=== PATIENT | female | born 1970 ===

== ENCOUNTER 2018-05-30 01:04 | Emergency (ER) | payer MEDICAID ==
[2018-05-30 01:04] VITALS: BMI 31.6
[2018-05-30 01:08] VITALS: BP 137/90; PULSE 85; RESP 18; TEMP 98.6; O2SAT 98
[2018-05-30] MEDS ORDERED: Oxycodone/Acetaminophen 5/325 mg Tab PO ONE (01:27)
[2018-05-30] MEDS ORDERED: Oxycodone/Acetaminophen 5/325 mg Tab ONE (01:29)
--- NOTE | 2018-05-30 01:30 | ED PDOC ---
Upper Extremity Pain/Injury Time Seen by Provider: 05/30/18 01:15 Chief Complaint (Nursing): Upper Extremity Problem/Injury Chief Complaint (Provider): fall, pain History Per: Patient, EMS History/Exam Limitations: no limitations Onset/Duration Of Symptoms: Mins Current Symptoms Are (Timing): Still Present Elbow (Pic): 1 - Tenderness, Swelling, Pain Worse W/Movement Additional Complaint(s): 48 y/o female brought in by EMS for evaluation of right arm pain. Patient states she slipped on wet floor in apartment building and fell on right arm. Denies numbness/weakness right upper extremity. Past Medical History Reviewed: Historical Data, Nursing Documentation, Vital Signs Vital Signs: Last Vital Signs Temp 98.6 F 05/30/18 01:06 Pulse 85 05/30/18 01:06 Resp 18 05/30/18 01:06 BP 137/90 05/30/18 01:06 Pulse Ox 98 05/30/18 01:06 - Medical History PMH: Anemia, Anxiety, Bipolar Disorder, Depression, Hypothyroidism, Pneumonia Denies: Diabetes, Hepatitis, HIV, HTN, Chronic Kidney Disease, Seizures, Sexually Transmitted Disease - Surgical History Surgical History: Cholecystectomy, Hernia Repair (x 3), (x 2) - Family History Family History: States: Unknown Family Hx - Home Medications Home Medications: Ambulatory Orders Medication Instructions Recorded Aripiprazole [Abilify Maintena] 300 mg IM TTS 12/23/17 Levothyroxine Sodium [Synthroid] 0.088 mg PO DAILY 12/23/17 Enoxaparin [Lovenox] 40 mg SC DAILY syr 12/26/17 Escitalopram [Lexapro] 5 mg PO HS 30 Days #30 tab 12/26/17 Levothyroxine [Synthroid] 88 mcg PO DAILY@0630 tab 12/26/17 lamoTRIgine [Lamictal] 100 mg PO DAILY 30 Days #60 tab 12/26/17 DiphenhydrAMINE [Benadryl] 1 - 2 cap PO Q6 PRN #16 cap 05/08/18 Methylprednisolone [Medrol Dose 4 mg PO DAILY #21 mg 06/27/18 Pack (21 tabs)] traMADol [Ultram] 50 mg PO Q8 #10 tab 05/16/18 Acetaminophen with Codeine 1 tab PO Q6 PRN #10 tab 05/30/18 [Tylenol with Codeine No. 3 300 mg-30 mg] Ibuprofen [Motrin Tab] 1 tab PO Q6 PRN #20 tab 05/30/18 - Allergies Allergies/Adverse Reactions: Allergies Allergy/AdvReac Type Severity Reaction Status Date / Time No Known Allergies Allergy Verified 05/20/17 11:39 Review of Systems ROS Statement: Except As Marked, All Systems Reviewed And Found Negative Musculoskeletal: Positive for: Arm Pain Physical Exam - Reviewed Nursing Documentation Reviewed: Yes Vital Signs Reviewed: Yes - Physical Exam Appears: Positive for: Well, Non-toxic, Uncomfortable Head Exam: Positive for: ATRAUMATIC, NORMAL INSPECTION, NORMOCEPHALIC Skin: Positive for: Normal Color Eye Exam: Positive for: Normal appearance Pulses-Radial (L): 2+ Pulses-Radial (R): 2+ Extremity: Positive for: Capillary Refill (<2 sec), Swelling (right arm in flexion; swelling noted distal right humerus to elbow; limited ROM secondary to pain. DIstal NV/motor intact) Neurologic/Psych: Positive for: Alert, Oriented. Negative for: Motor/Sensory Deficits - ECG O2 Sat by Pulse Oximetry: 98 - Other Rad xray right humerus X-Ray: Viewed By Tn X-Ray Interpretation: + spiral distal humerus fracture - Progress ED Course And Treament: xray, percocet Patient educated on findings, placed in right posterior splint/sling by quality control technician (checked by proposal manager writer, NV intact post application) Advised ortho follow up Rx Ibuprofen, Tylenol #3 given Return precautions given Disposition - Clinical Impression Clinical Impression: Humerus fracture - Patient ED Disposition Is Patient to be Admitted: No Counseled Patient/Family Regarding: Studies Performed, Diagnosis, Need For Followup, Rx Given - Disposition Referrals: Edgar Epstein MD [Staff Provider] - Disposition: Routine/Home Disposition Time: 03:10 Condition: STABLE Prescriptions: Acetaminophen with Codeine [Tylenol with Codeine No. 3 300 mg-30 mg] 1 tab PO Q6 PRN #10 tab PRN Reason: Pain, Severe (8-10) Ibuprofen [Motrin Tab] 1 tab PO Q6 PRN #20 tab PRN Reason: Pain, Moderate (4-7) Instructions: Upper Arm Fracture Forms: [facility] (Swedish)
--- NOTE | 2018-05-30 10:31 | RAD ---
PROCEDURE: Radiographs of the right humerus. HISTORY: fall, distal pain COMPARISON: None. FINDINGS: BONES: Oblique mildly displaced, mildly angulated fracture of the right humeral diaphysis at the junction of middle and distal thirds. SOFT TISSUES: Normal. OTHER FINDINGS: None. IMPRESSION: Oblique mildly displaced fracture right humeral diaphysis.
== END 2018-05-30 03:11 | disposition home or self-care (01) ==
LOC: MERGE 01:04 → H.ER 01:04
DX: S42.201A Unspecified fracture of upper end of right humerus, initial encounter for closed fracture (principal); W01.0XXA Fall on same level from slipping, tripping and stumbling without subsequent striking against object, initial encounter; Y92.89 Other specified places as the place of occurrence of the external cause; E03.9 Hypothyroidism, unspecified; F31.9 Bipolar disorder, unspecified; F41.9 Anxiety disorder, unspecified

== ENCOUNTER 2018-05-31 12:09 | Emergency (ER) | payer MEDICAID ==
[2018-05-31 12:24] VITALS: RESP 18
[2018-05-31] MEDS ORDERED: Oxycodone/Acetaminophen 5/325 mg Tab PO STA (12:58)
[2018-05-31] MEDS ORDERED: Oxycodone/Acetaminophen 5/325 mg Tab ONE (13:07)
--- NOTE | 2018-05-31 13:52 | ED PDOC ---
Upper Extremity Pain/Injury Time Seen by Provider: 05/31/18 12:34 Chief Complaint (Nursing): Upper Extremity Problem/Injury Chief Complaint (Provider): Upper Extremity Problem/Injury History Per: Patient History/Exam Limitations: no limitations Onset/Duration Of Symptoms: Days (x2) Additional Complaint(s): Patient is a 48 y/o female with no significant past medical history who presents to the ED complaining of right elbow pain, onset x2 days ago. Patient states that x2 days ago on Sunday night she fell down in the tub and landed on her right elbow. She reports she came to ED that evening and was told she had a fracture given her x-ray results. She was splinted and discharged with a prescription for Tylenol #3 but reports she has not yet filled it. She states she also called her insurance and was given a number to go talk to a doctor but that doctor was a chiropractor. She returned to the ED today because she does not know who to follow up with as well as for pain control. She reports pain has been constant but has not worsened. She denies any numbness, tingling or new trauma. Past Medical History Reviewed: Historical Data, Nursing Documentation, Vital Signs Vital Signs: Last Vital Signs Temp 98.2 F 05/31/18 12:21 Pulse 110 H 05/31/18 12:21 Resp 18 05/31/18 12:21 BP 117/81 05/31/18 12:21 Pulse Ox 98 05/31/18 12:21 - Medical History PMH: Anxiety, Hypothyroidism - Family History Family History: States: Unknown Family Hx - Allergies Allergies/Adverse Reactions: Allergies Allergy/AdvReac Type Severity Reaction Status Date / Time No Known Allergies Allergy Verified 05/31/18 12:21 Review of Systems ROS Statement: Except As Marked, All Systems Reviewed And Found Negative Constitutional: Negative for: Fever Musculoskeletal: Positive for: Arm Pain (right elbow) Neurological: Negative for: Numbness (or tingling) Physical Exam - Reviewed Nursing Documentation Reviewed: Yes Vital Signs Reviewed: Yes - Physical Exam Appears: Positive for: Non-toxic, No Acute Distress Head Exam: Positive for: ATRAUMATIC, NORMOCEPHALIC Pulses-Radial (L): 2+ Pulses-Radial (R): 2+ Extremity: Positive for: Capillary Refill (<2 seconds), Other (Distal sensation intact and equal; able to actively move all fingers). Negative for: Deformity ( right upper arm is in a posterior eblow splint and sling; clean dry and intact) Neurologic/Psych: Positive for: Alert, Oriented. Negative for: Motor/Sensory Deficits - ECG O2 Sat by Pulse Oximetry: 98 (RA) Pulse Ox Interpretation: Normal Medical Decision Making Medical Decision Making: Time: 12:58 Initial Impression: Elbow fracture Initial Plan: --Percocet 5/325 mg 1 tab --reevaluation Case d/w Dr. Kris Doran who states pt. can f/u with Dr. Nas Beth from [facility]. Pt. informed of plan and states she can f/u with Dr. Beth in [facility]. Scribe Attestation: Documented by Jovany Mariano, acting as a scribe for Rolly Soto PA-C Provider Scribe Attestation: All medical record entries made by the Scribe were at my direction and personally dictated by me. I have reviewed the chart and agree that the record accurately reflects my personal performance of the history, physical exam, medical decision making, and the department course for this patient. I have also personally directed, reviewed, and agree with the discharge instructions and disposition. Disposition - Clinical Impression Clinical Impression: Aftercare for cast or splint check or change - Patient ED Disposition Is Patient to be Admitted: No - Disposition Referrals: Edgar Epstein MD [Staff Provider] - [facility] [Outside] Disposition: Routine/Home Disposition Time: 16:08 Condition: STABLE Additional Instructions: CONTACT DR. NAS BETH, ORTHOPEDIST, FOR FURTHER EVALUATION. GLORIA LOVING, thank you for letting us take care of you today. Your provider was Chaz Oneill III, DO and you were treated for RT ARM PAIN. The emergency medical care you received today was directed at your acute symptoms. If you were prescribed any medication, please fill it and take as directed. It may take several days for your symptoms to resolve. Return to the Emergency Department if your symptoms worsen, do not improve, or if you have any other problems. Please contact your doctor or call one of the physicians/clinics you have been referred to that are listed on the Patient Visit Information form that is included in your discharge packet. Bring any paperwork you were given at discharge with you along with any medications you are taking to your follow up visit. Our treatment cannot replace ongoing medical care by a primary care provider outside of the emergency department. Thank you for allowing the [facility] team to be part of your care today. If you had an X-Ray or CT scan: A Radiologist will review the ED reading if any change in treatment is needed we will contact you. If you had a blood, urine, or wound culture: It will take several days for the results, if any change in treatment is needed we will contact you. If you had an STI test: It will take 48 hours for the results. Please call after 1 week if you have not heard back. Instructions: Elbow Fracture (DC), How to Use a Shoulder Sling Forms: [employer] (Swedish) Print Language: ARMENIAN
[2018-05-31 16:23] VITALS: BP 122/78; PULSE 76; TEMP 98.1
[2018-05-31 17:54] VITALS: O2SAT 98
== END 2018-05-31 16:23 | disposition home or self-care (01) ==
LOC: H.ER 12:09
DX: Z47.89 Encounter for other orthopedic aftercare (principal); E03.9 Hypothyroidism, unspecified; F41.9 Anxiety disorder, unspecified

== ENCOUNTER 2018-06-24 15:26 | Emergency (ER) | payer MEDICAID ==
[2018-06-24 15:26] VITALS: BMI 31.6
--- NOTE | 2018-06-24 17:41 | ED PDOC ---
Upper Extremity Pain/Injury Time Seen by Provider: 06/24/18 17:39 Chief Complaint (Nursing): Upper Extremity Problem/Injury Chief Complaint (Provider): upper extremity swelling History Per: Patient (48 y/o female her with right arm swelling noted increasing. Patient has h/o humerus fx 05/30 and has been seen by [facility] with splint removal and placement of different device. Had appt with orth clinic today but was cancelled.) Past Medical History Reviewed: Historical Data, Nursing Documentation, Vital Signs - Medical History PMH: Anemia, Anxiety, Bipolar Disorder, Depression, Hypothyroidism, Pneumonia Denies: Diabetes, Hepatitis, HIV, HTN, Chronic Kidney Disease, Seizures, Sexually Transmitted Disease - Surgical History Surgical History: Cholecystectomy, Hernia Repair (x 3), (x 2) - Family History Family History: States: Unknown Family Hx - Home Medications Home Medications: Ambulatory Orders Medication Instructions Recorded Aripiprazole [Abilify Maintena] 300 mg IM TTS 12/23/17 Levothyroxine Sodium [Synthroid] 0.088 mg PO DAILY 12/23/17 Enoxaparin [Lovenox] 40 mg SC DAILY syr 12/26/17 Escitalopram [Lexapro] 5 mg PO HS 30 Days #30 tab 12/26/17 Levothyroxine [Synthroid] 88 mcg PO DAILY@0630 tab 12/26/17 lamoTRIgine [Lamictal] 100 mg PO DAILY 30 Days #60 tab 12/26/17 DiphenhydrAMINE [Benadryl] 1 - 2 cap PO Q6 PRN #16 cap 05/08/18 Methylprednisolone [Medrol Dose 4 mg PO DAILY #21 mg 05/08/18 Pack (21 tabs)] traMADol [Ultram] 50 mg PO Q8 #10 tab 05/16/18 Acetaminophen with Codeine 1 tab PO Q6 PRN #10 tab 05/30/18 [Tylenol with Codeine No. 3 300 mg-30 mg] Ibuprofen [Motrin Tab] 1 tab PO Q6 PRN #20 tab 05/30/18 - Allergies Allergies/Adverse Reactions: Allergies Allergy/AdvReac Type Severity Reaction Status Date / Time No Known Allergies Allergy Verified 05/31/18 12:21 Review of Systems ROS Statement: Except As Marked, All Systems Reviewed And Found Negative Physical Exam - Reviewed Nursing Documentation Reviewed: Yes Vital Signs Reviewed: Yes - Physical Exam Appears: Positive for: Well, Non-toxic, No Acute Distress Head Exam: Positive for: ATRAUMATIC, NORMAL INSPECTION, NORMOCEPHALIC Skin: Positive for: Normal Color, Warm, DRY Eye Exam: Positive for: EOMI, Normal appearance, PERRL ENT: Positive for: Normal ENT Inspection Neck: Positive for: Normal, Painless ROM Cardiovascular/Chest: Positive for: Regular Rate, Rhythm Respiratory: Positive for: CNT, Normal Breath Sounds Gastrointestinal/Abdominal: Positive for: Normal Exam, Soft Back: Positive for: Normal Inspection Extremity: Positive for: Normal ROM, Tenderness, Swelling (right arm swelling. 2+ pulse noted radial.) Neurologic/Psych: Positive for: Alert, Oriented Disposition - Disposition
--- NOTE | 2018-06-24 21:03 | ED PDOC ---
- ECG Pulse Ox Interpretation: Normal - Progress ED Course And Treament: US without evidence DVt. Disposition - Clinical Impression Clinical Impression: Aftercare for cast or splint check or change, Humerus fracture - POA Present On Arrival: None - Disposition Disposition: Routine/Home Disposition Time: 21:03 Condition: GOOD Additional Instructions: Please follow-up with orthopedics. Instructions: Upper Arm Fracture Forms: [employer] ([place])
[2018-06-24 21:40] VITALS: BP 133/87; PULSE 78; RESP 16; TEMP 99.1; O2SAT 98
--- NOTE | 2018-06-25 09:48 | RAD ---
Date of service: 06/24/2018 PROCEDURE: Right Wrist Radiographs. HISTORY: Pain COMPARISON: None. FINDINGS: BONES: Bone alignment and mineralization are normal. There is no acute displaced fracture or bone destruction. JOINTS: Normal. No dislocation. SOFT TISSUES: Normal. OTHER FINDINGS: None. IMPRESSION: No acute fracture or dislocation.
--- NOTE | 2018-06-25 09:49 | RAD ---
PROCEDURE: Radiographs of the Right Forearm HISTORY: swelling COMPARISON: None available. TECHNIQUE: Frontal and lateral views obtained. FINDINGS: BONES: Bone alignment and mineralization are normal. There is no acute displaced fracture or bone destruction. JOINT SPACES: Unremarkable. OTHER FINDINGS: There is diffuse subcutaneous edema. IMPRESSION: No acute fracture or dislocation. Diffuse subcutaneous edema.
--- NOTE | 2018-06-25 09:51 | RAD ---
PROCEDURE: Radiographs of the right humerus. HISTORY: swelling COMPARISON: None. FINDINGS: BONES: There is an acute displaced fracture in the distal diaphysis of the humerus with 7 mm distraction of fracture fragments and 8 mm lateral displacement. SOFT TISSUES: Normal. OTHER FINDINGS: None. IMPRESSION: Acute displaced fracture in the distal diaphysis of the humerus as described above.
--- NOTE | 2018-06-25 11:07 | US ---
Date of service: 06/24/2018 PROCEDURE: Right lower extremity venous duplex Doppler. HISTORY: right upper arm swelling COMPARISON: None available. TECHNIQUE: Common femoral, superficial femoral, popliteal and posterior tibial veins were evaluated. Flow was assessed with color Doppler, compressibility, assessment of phasic flow and augmentation response. FINDINGS: COMMON FEMORAL VEIN: Unremarkable. SUPERFICIAL FEMORAL VEIN: Unremarkable. POPLITEAL VEIN: Unremarkable. POSTERIOR TIBIAL VEIN: Unremarkable. OTHER FINDINGS: None. IMPRESSION: No evidence of deep venous thrombosis in the right lower extremity. Concordant results (preliminary interpretation) provided by [facility]. Procedure Completed: 19:41. Preliminary ([facility]) Report: Dictated and Authenticated: 20:31. Final Interpretation: 11:05. June 25, 2018.
== END 2018-06-24 21:40 | disposition home or self-care (01) ==
LOC: H.ER 15:26
DX: Z47.89 Encounter for other orthopedic aftercare (principal); E03.9 Hypothyroidism, unspecified; F31.9 Bipolar disorder, unspecified; F41.9 Anxiety disorder, unspecified

== ENCOUNTER 2018-11-07 14:43 | Observation (INO) | payer MEDICAID ==
[2018-11-07 14:43] VITALS: BMI 31.6
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
[2018-11-07] MEDS: Sodium Chloride 0.9% 1,000 ML IV SCH (15:57)
[2018-11-07 16:04] LABS: BASO % 0.5 % (0.0-2.0); EOS # 0.1 K/uL (0.0-0.7); EOS % 1.1 % (0.0-4.0); HEMOGLOBIN 12.3 g/dL (12.0-16.0); LYMPH # 1.3 K/uL (1.0-4.3); LYMPH % 22.3 % (20.0-40.0); MEAN CELL VOLUME 80.3 fl (81.0-99.0); MEAN CORPUSCULAR HEMOGLOBIN 25.8 pg (27.0-31.0); MEAN CORPUSCULAR HGB CONC 32.1 g/dL (33.0-37.0); MONO # 0.4 K/uL (0.0-0.8); MONO % 6.5 % (0.0-10.0); NEUT # 4.2 K/uL (1.8-7.0); NEUT % 69.6 % (50.0-75.0); RBC 4.78 Mil/uL (3.80-5.20); RED CELL DISTRIBUTION WIDTH 16.4 % (11.5-14.5)
[2018-11-07 16:16] LABS: ALBUMIN 4.2 g/dL (3.5-5.0); BLOOD UREA NITROGEN 15 mg/dl (7-17); CALCIUM 8.9 mg/dL (8.4-10.2); GFR NON-AFRICAN AMERICAN > 60; HDL CHOLESTEROL 44 MG/DL (30-70)
[2018-11-07 16:21] LABS: ALT/SGPT 26 U/L (9-52); AST/SGOT 34 U/L (14-36)
[2018-11-07 16:25] LABS: INR 1.1; PROTHROMBIN TIME 12.5 Seconds (9.8-13.1)
[2018-11-07 16:26] LABS: LDL CHOLESTEROL 122 mg/dL (0-129)
[2018-11-07 16:28] LABS: PARTIAL THROMBOPLASTIN TIME 33.5 Seconds (25.6-37.1)
--- NOTE | 2018-11-07 17:06 | CT ---
Date of service: 11/07/2018 PROCEDURE: CT HEAD WITHOUT CONTRAST. HISTORY: cva eval COMPARISON: 07/20/2018. TECHNIQUE: Axial computed tomography images were obtained through the head/brain without intravenous contrast. Supplemental Coronal and Sagittal projections created and reviewed. Radiation dose: Total exam DLP = 848.81 mGy-cm. This CT exam was performed using one or more of the following dose reduction techniques: Automated exposure control, adjustment of the mA and/or kV according to patient size, and/or use of iterative reconstruction technique. FINDINGS: HEMORRHAGE: No intracranial hemorrhage. BRAIN: No mass effect or edema. Cortical atrophy and chronic microvascular ischemic change. VENTRICLES: Unremarkable. No hydrocephalus. CALVARIUM: Unremarkable. PARANASAL SINUSES: Unremarkable as visualized. No significant inflammatory changes. MASTOID AIR CELLS: Unremarkable as visualized. No inflammatory changes. OTHER FINDINGS: None. IMPRESSION: No acute intracranial abnormalities. No significant findings to account for the clinical presentation. No significant interval change compared to the prior examination(s).
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
[2018-11-08] MEDS: Sodium Chloride 0.9% 1,000 ML IV SCH (04:44)
[2018-11-08] MEDS ORDERED: Pneumococcal 23-Valent Vaccine IM ONE (06:00)
[2018-11-08 06:10] LABS: BASO % 0.6 % (0.0-2.0); EOS # 0.1 K/uL (0.0-0.7); EOS % 2.4 % (0.0-4.0); HEMOGLOBIN 11.9 g/dL (12.0-16.0); LYMPH # 1.6 K/uL (1.0-4.3); LYMPH % 32.8 % (20.0-40.0); MEAN CORPUSCULAR HEMOGLOBIN 26.3 pg (27.0-31.0); MEAN CORPUSCULAR HGB CONC 32.9 g/dL (33.0-37.0); MEAN PLATELET VOLUME 8.9 fl (7.2-11.7); MONO # 0.4 K/uL (0.0-0.8); MONO % 7.4 % (0.0-10.0); NEUT # 2.7 K/uL (1.8-7.0); NEUT % 56.8 % (50.0-75.0); RBC 4.51 Mil/uL (3.80-5.20); WHITE BLOOD COUNT 4.7 K/uL (4.8-10.8)
[2018-11-08 06:24] LABS: BLOOD UREA NITROGEN 14 mg/dl (7-17); CALCIUM 8.6 mg/dL (8.4-10.2); GFR NON-AFRICAN AMERICAN > 60
[2018-11-08] MEDS ORDERED: Levothyroxine 88 MCG TAB PO SCH (06:30)
[2018-11-08] MEDS ORDERED: Iodixanol 320 MG/ML 100 ML BOTTLE IV ONE (09:58)
[2018-11-08] MEDS ORDERED: Sodium Chloride 0.9% 50 ML IV ONE (09:58)
--- NOTE | 2018-11-08 11:29 | CT ---
Date of service: 11/08/2018 PROCEDURE: CT Angiography of the neck and brain with contrast HISTORY: Rule out TIA COMPARISON: Comparison made with prior CT scan brain 11/07/2018. TECHNIQUE: Contiguous axial images of the neck were obtained from the level of the vertex of the skull to the superior mediastinum in the arteriographic phase of enhancement. Coronal and sagittal reformats or also generated. IV contrast dose: 99 cc Visipaque 320 Radiation dose: Total exam DLP = 586.28 mGy-cm. This CT exam was performed using one or more of the following dose reduction techniques: Automated exposure control, adjustment of the mA and/or kV according to patient size, and/or use of iterative reconstruction technique. FINDINGS: The aortic arch widely patent without significant atherosclerotic disease. The origins of the great vessels are also patent with no significant atherosclerosis. The common carotid arteries and carotid bifurcations are widely patent without significant atherosclerotic disease. No evidence of dissection, occlusion or significant stenosis. The distal internal carotid arteries including the petrous cavernous and supraclinoid segments also patent. The left vertebral artery takes origin from the aortic arch. The both vertebral arteries are patent, right-sided which is larger in caliber/more dominant than the left side.. The left vertebral artery terminates in a left-sided posterior inferior cerebellar artery PICA). The visualized major branches of the [place] are also patent. No evidence of large aneurysm nor vascular malformation. OTHER FINDINGS: There is a small approximately 9.8 x 8.2 mm elliptical shaped low-attenuation lesion left lobe thyroid gland for which thyroid ultrasound follow-up suggested. Right lobe thyroid slightly heterogeneous in appearance. IMPRESSION: No evidence of dissection, occlusion or significant stenosis. Left vertebral artery arises from the aortic arch.. The distal left vertebral artery also terminates in a left-sided PICA as described above. No evidence of large aneurysm nor vascular malformation. Low-attenuation lesion left lobe thyroid gland for which thyroid ultrasound recommended
--- NOTE | 2018-11-08 12:39 | CARD ---
APPROVED REPORT Date of service: 11/07/2018 EKG Measurement Heart [id number] <Conclusion> Normal sinus rhythm Normal ECG
--- NOTE | 2018-11-08 12:54 | RAD ---
Date of service: 11/07/2018 HISTORY: Code Stroke COMPARISON: 07/20/2018 FINDINGS: LUNGS: No active pulmonary disease. PLEURA: No significant pleural effusion identified, no pneumothorax apparent. CARDIOVASCULAR: No aortic atherosclerotic calcification present. Normal cardiac size. No pulmonary vascular congestion. OSSEOUS STRUCTURES: No significant abnormalities. VISUALIZED UPPER ABDOMEN: Normal. OTHER FINDINGS: None. IMPRESSION: No active disease.
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
[2018-11-08 15:54] VITALS: RESP 17; TEMP 98.4
[2018-11-08] MEDS ORDERED: Gadodiamide 287 MG/ML VIAL (15ML) IV ONE (16:49)
[2018-11-08 19:40] VITALS: BP 108/71; PULSE 68; O2SAT 99
[2018-11-09] MEDS ORDERED: ARIPIPRAZOLE 300 MG IM SCH (09:00)
--- NOTE | 2018-11-10 15:25 | MRI ---
Date of service: 11/08/2018 PROCEDURE: MRI BRAIN WITH AND WITHOUT CONTRAST HISTORY: Stroke COMPARISON: Comparison made with prior CT scan of the brain dated 11/07/2018 and CTA brain 11/08/2018. TECHNIQUE: Multiplanar, multisequence MR images of the brain were obtained with and without intravenous contrast enhancement. FINDINGS: HEMORRHAGE: No acute parenchymal, subarachnoid or extra-axial hemorrhage. No evidence of hemosiderin deposition is identified on gradient echo weighted sequence. DWI: No evidence of an acute or early subacute infarction seen on diffusion imaging. BRAIN PARENCHYMA: Uyuw-yw-vgfiavug generalized volume loss with prominent- localized bilateral frontoparietal cortical atrophic changes at the vertex, left greater than right . No mass effect or edema. No atrophy or chronic microvascular ischemic changes. ENHANCEMENT: No enhancing parenchymal nor extra-axial masses or collections. No evidence of unusual meningeal enhancement.. VENTRICLES: No obstructive hydrocephalus. CRANIUM: Unremarkable. ORBITS: Grossly unremarkable. PARANASAL SINUSES/MASTOIDS: Clear VASCULAR SYSTEM: Visualized major vascular flow voids at skull base patent. OTHER FINDINGS: None . IMPRESSION: No evidence of acute intracranial hemorrhage or infarction. No enhancing lesions. Ruzi-oc-wtsyovlc generalized volume loss with prominent- localized bilateral frontoparietal cortical atrophic changes at the vertex, left greater than right.
== END 2018-11-08 20:16 | disposition home or self-care (01) ==
LOC: H.ER 14:43 → H.ERHOLD 19:22 → H.TEL 23:50
DX: H54.61 Unqualified visual loss, right eye, normal vision left eye (principal); R20.0 Anesthesia of skin; E03.9 Hypothyroidism, unspecified; K29.70 Gastritis, unspecified, without bleeding; F31.9 Bipolar disorder, unspecified; F41.9 Anxiety disorder, unspecified; D64.9 Anemia, unspecified; Z87.828 Personal history of other (healed) physical injury and trauma; Z87.01 Personal history of pneumonia (recurrent)
CPT/HCPCS: 36415; 70450; 70496; 70498; 70553; 71045; 80048; 80053; 80061; 82607; 82948; 83036; 83735; 84100; 84484; 85025; 85610; 85730; 86850; 86900; 93005; 99285; A9579; G0378; J3420; J7030; Q9967

== ENCOUNTER 2019-01-30 19:14 | Emergency (ER) | payer MEDICAID ==
[2019-01-30 19:14] VITALS: BMI 31.6
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
[2019-01-30 20:56] LABS: BASO % 0.5 % (0.0-2.0); EOS # 0.1 K/uL (0.0-0.7); EOS % 2.5 % (0.0-4.0); HEMOGLOBIN 12.7 g/dL (12.0-16.0); LYMPH # 1.6 K/uL (1.0-4.3); LYMPH % 27.6 % (20.0-40.0); MEAN CELL VOLUME 82.1 fl (81.0-99.0); MEAN CORPUSCULAR HEMOGLOBIN 27.9 pg (27.0-31.0); MEAN PLATELET VOLUME 8.2 fl (7.2-11.7); MONO # 0.4 K/uL (0.0-0.8); MONO % 6.4 % (0.0-10.0); NEUT # 3.7 K/uL (1.8-7.0); NRBC % 0.1 % (0.0-0.0); RBC 4.54 Mil/uL (3.80-5.20); RED CELL DISTRIBUTION WIDTH 15.4 % (11.5-14.5); WHITE BLOOD COUNT 5.9 K/uL (4.8-10.8)
[2019-01-30 21:06] LABS: ALB/GLOB RATIO 1.1 (1.0-2.1); ALBUMIN 4.1 g/dL (3.5-5.0); ALT/SGPT 18 U/L (9-52); AST/SGOT 22 U/L (14-36); BLOOD UREA NITROGEN 15 mg/dl (7-17); CALCIUM 9.3 mg/dL (8.4-10.2); GFR NON-AFRICAN AMERICAN > 60; LIPASE 78 U/L (23-300)
[2019-01-30 21:18] LABS: SQUAMOUS EPITHIAL 11 /hpf (0-5); URINE BILIRUBIN NEGATIVE (NEGATIVE); URINE COLOR YELLOW (YELLOW); URINE GLUCOSE (UA) NEG (NEGATIVE); URINE LEUKOCYTE ESTERASE NEG Leu/uL (Negative); URINE PROTEIN NEGATIVE (NEGATIVE); URINE UROBILINOGEN 0.2-1.0 mg/dL (0.2-1.0)
[2019-01-30 21:23] LABS: URINE BLOOD TRACE (NEGATIVE); URINE CLARITY CLOUDY (Clear)
[2019-01-30 23:16] VITALS: BP 122/78; PULSE 72; RESP 19; TEMP 98.1; O2SAT 96
--- NOTE | 2019-01-31 09:35 | RAD ---
Date of service: 01/30/2019 HISTORY: chest pain COMPARISON: Comparison chest 11/07/2018. TECHNIQUE: Chest PA and lateral FINDINGS: LUNGS: Minor bibasilar atelectasis. PLEURA: No significant pleural effusion identified. No pneumothorax apparent. CARDIOVASCULAR: No aortic atherosclerotic calcification present. Heart appears enlarged. No pulmonary vascular congestion. OSSEOUS STRUCTURES: Mild multilevel degenerative spondylosis of the thoracic spine.. There also appears to be mild dextroscoliosis centered in the upper/midthoracic region VISUALIZED UPPER ABDOMEN: Normal. OTHER FINDINGS: None. IMPRESSION: Minor bibasilar atelectasis.
--- NOTE | 2019-01-31 22:30 | CARD ---
APPROVED REPORT Date of service: 01/30/2019 EKG Measurement Heart [id number] <Conclusion> Normal sinus rhythm Rightward axis Cannot rule out Inferior infarct, age undetermined Abnormal ECG
== END 2019-01-30 22:10 | disposition home or self-care (01) ==
LOC: H.ER 19:14
DX: F41.9 Anxiety disorder, unspecified (principal); E03.9 Hypothyroidism, unspecified; F31.9 Bipolar disorder, unspecified

== ENCOUNTER 2019-02-17 09:58 | Day surgery (SDC) | payer MEDICAID ==
[2019-02-17 11:24] VITALS: BMI 33.8
[2019-02-17 11:45] VITALS: RESP 18
[2019-02-17] MEDS ORDERED: Lidocaine Hydrochloride 1% 0 ML ONE (11:47)
--- NOTE | 2019-02-17 12:19 | CP.SDSHP ---
Same Day Surgery H & P - History Proposed Procedure: US guided FNA of left thyroid nodule Pre-Op Diagnosis: left thyroid nodule - Allergies Allergies: Allergies No Known Allergies Allergy (Verified 02/17/19 11:38) - Physical Exam Vital Signs: Vital Signs 02/17/19 02/17/19 11:43 12:13 Temperature 97.8 F 98.1 F Pulse Rate 70 80 Respiratory 18 18 Rate Blood Pressure 124/85 146/81 O2 Sat by Pulse 99 Oximetry Mental Status: Alert & Oriented x3 - Impression Impression: Ultrasound of neck did not show previously measured thyroid nodule. Subcentimeter left thyroid nodule is seen. No FNA was performed as nodule is too small. Short Stay Discharge - Short Stay Discharge Admitting Diagnosis/Reason for Visit: E03.9 Disposition: HOME/ ROUTINE
[2019-02-17 14:16] VITALS: BP 139/85; PULSE 71; TEMP 97.9; O2SAT 100
== END 2019-02-17 12:50 | disposition home or self-care (01) ==
LOC: H.OPSURG 09:58
PROVIDERS: ATTEND Student in an Organized Health Care Education/Training Program
DX: Z02.89 Encounter for other administrative examinations (principal); E04.1 Nontoxic single thyroid nodule; E03.9 Hypothyroidism, unspecified

== ENCOUNTER 2019-03-30 10:45 | Emergency (ER) | payer MEDICAID ==
[2019-03-30 11:00] VITALS: BP 130/80; PULSE 87; RESP 18; TEMP 97.4; O2SAT 98
[2019-03-30 11:01] VITALS: BMI 34.7
--- NOTE | 2019-03-30 12:47 | ED PDOC ---
HPI: CCC, URI, Sore Throat Time Seen by Provider: 03/30/19 11:14 Chief Complaint (Nursing): Cough, Cold, Congestion Chief Complaint (Provider): Cough, Cold, Congestion History Per: Patient History/Exam Limitations: no limitations Onset/Duration Of Symptoms: Gradual (x1 week) Current Symptoms Are (Timing): Still Present Additional Complaint(s): 49 year old female with medical history of bipolar disorder and hypothyroidism, presents to the emergency department with complaints of flu-like symptoms including sore throat, cough, congestion, bodyaches, fatigue, malaise, and decreased appetite for 1 week. She denies vomiting, diarrhea, rash, throat swelling, or recent travel. Of note, patient's roommate was recently sick with bronchitis and had similar symptoms. Past Medical History Reviewed: Historical Data, Nursing Documentation, Vital Signs Vital Signs: Last Vital Signs Temp 97.4 F L 03/30/19 12:24 Pulse 87 03/30/19 10:59 Resp 18 03/30/19 10:59 BP 130/80 03/30/19 10:59 Pulse Ox 98 03/30/19 11:06 Primary Care Provider: FAMILY PROVIDER,NO - Medical History PMH: Anemia, Anxiety, Bipolar Disorder, Depression, Hypothyroidism, Pneumonia Denies: Diabetes, Hepatitis, HIV, HTN, Chronic Kidney Disease, Seizures, Sexually Transmitted Disease - Surgical History Surgical History: Cholecystectomy, Hernia Repair (x 3), (x 2) Other surgeries: left foot; strabismus - Family History Family History: States: Other Other Family History: thyroid disease - Social History Current smoker - smoking cessation education provided: No Alcohol: None Drugs: Denies - Immunization History Hx Tetanus Toxoid Vaccination: No Hx Influenza Vaccination: No Hx Pneumococcal Vaccination: No - Home Medications Home Medications: Ambulatory Orders Medication Instructions Recorded Aripiprazole [Abilify Maintena] 300 mg IM QWK 12/23/17 Levothyroxine [Synthroid] 88 mcg PO DAILY@0630 tab 12/26/17 lamoTRIgine [Lamictal] 100 mg PO DAILY 30 Days #60 tab 12/26/17 Acetaminophen [Tylenol Extra 1,000 mg PO Q6 PRN #100 tablet 03/30/19 Strength] Ibuprofen [Motrin Tab] 600 mg PO Q8 PRN #60 tab 03/30/19 Pseudoephedrine HCl 120 mg PO BID PRN #14 tablet.er 03/30/19 [Pseudoephedrine ER] guaiFENesin/Dextromethorphan 10 ml PO Q6 PRN #240 udc 03/30/19 [guaiFENesin-DM] - Allergies Allergies/Adverse Reactions: Allergies Allergy/AdvReac Type Severity Reaction Status Date / Time No Known Allergies Allergy Verified 03/30/19 11:06 Review of Systems ROS Statement: Except As Marked, All Systems Reviewed And Found Negative Constitutional: Positive for: Malaise (and fatigue), Other (bodyaches) ENT: Positive for: Nose Congestion, Throat Pain. Negative for: Throat Swelling Respiratory: Positive for: Cough Gastrointestinal: Positive for: Other (decreased appetite). Negative for: Vomiting, Diarrhea Skin: Negative for: Rash Physical Exam - Reviewed Nursing Documentation Reviewed: Yes Vital Signs Reviewed: Yes - Physical Exam Appears: Positive for: No Acute Distress (tired) Head Exam: Positive for: ATRAUMATIC, NORMOCEPHALIC Skin: Positive for: Warm, Diaphoresis Eye Exam: Positive for: EOMI, PERRL ENT: Positive for: Sinus Pain/Drainage (boggy and erythematous turbinates with secretion), Other (tacky mucous membranes). Negative for: Pharyngeal Erythema Neck: Positive for: Painless ROM, Supple Cardiovascular/Chest: Positive for: Regular Rate, Rhythm. Negative for: Murmur Respiratory: Positive for: Normal Breath Sounds. Negative for: Rhonchi, Wheezing, Respiratory Distress Gastrointestinal/Abdominal: Positive for: Soft. Negative for: Tenderness Back: Positive for: Normal Inspection. Negative for: Decreased ROM Extremity: Positive for: Normal ROM. Negative for: Deformity Lymphatic: Negative for: Adenopathy Neurological/Psych: Positive for: Awake, Alert. Negative for: Motor/Sensory Deficits - ECG O2 Sat by Pulse Oximetry: 98 (RA) Pulse Ox Interpretation: Normal Medical Decision Making Medical Decision Making: Initial Impression: viral syndrome Differential diagnosis includes but not limited to: influenza; strep; pneumonia Initial Plan: * Labs * CXR * Toradol IM * Tylenol PO * Influenza AB * Rapid strep CXR no infiltrate, no effusions, no acute pathology Serologies negative DW pt findings and plan of care. Symptomatic management with rest and fluids. Outpatient followup. Stable for discharge. Scribe Attestation: Documented by Anabell Collins, acting as a scribe for Francesca Arboleda MD. Provider Scribe Attestation: All medical record entries made by the Scribe were at my direction and personally dictated by me. I have reviewed the chart and agree that the record accurately reflects my personal performance of the history, physical exam, medical decision making, and the department course for this patient. I have also personally directed, reviewed, and agree with the discharge instructions and disposition. Disposition - Clinical Impression Clinical Impression: Bronchitis Counseled Patient/Family Regarding: Studies Performed, Diagnosis, Need For Followup, Rx Given - Disposition Referrals: [facility] [place] [Outside] - 04/01/19 Disposition: Routine/Home Disposition Time: 13:51 Condition: FAIR Additional Instructions: REST, DRINK PLENTY OF HYDRATING FLUIDS AND FOLLOWUP WITH CLINIC IN 2-3 DAYS Prescriptions: Acetaminophen [Tylenol Extra Strength] 1,000 mg PO Q6 PRN #100 tablet PRN Reason: FEVER OR PAIN guaiFENesin/Dextromethorphan [guaiFENesin-DM] 10 ml PO Q6 PRN #240 udc PRN Reason: Cough Ibuprofen [Motrin Tab] 600 mg PO Q8 PRN #60 tab PRN Reason: Pain, Moderate (4-7) Pseudoephedrine HCl [Pseudoephedrine ER] 120 mg PO BID PRN #14 tablet.er PRN Reason: Nasal congestion Instructions: Acute Bronchitis, Adult (DC) Forms: [employer] (Khmer)
--- NOTE | 2019-03-30 16:13 | RAD ---
Date of service: 03/30/2019 HISTORY: cough chills COMPARISON: 01/30/2019 TECHNIQUE: Chest PA and lateral views FINDINGS: LUNGS: No active pulmonary disease. PLEURA: No significant pleural effusion identified. No pneumothorax apparent. CARDIOVASCULAR: No aortic atherosclerotic calcification present. Normal cardiac size. No pulmonary vascular congestion. OSSEOUS STRUCTURES: No significant abnormalities. VISUALIZED UPPER ABDOMEN: Normal. OTHER FINDINGS: None. IMPRESSION: No active disease.
== END 2019-03-30 14:26 | disposition home or self-care (01) ==
LOC: H.ER 10:45
DX: J40 Bronchitis, not specified as acute or chronic (principal); Z86.59 Personal history of other mental and behavioral disorders; E03.9 Hypothyroidism, unspecified
CPT/HCPCS: 71046; 81025; 87070; 87430; 87804; 96372; 99283; J1885